=== PATIENT | female | born 1990 | race Caucasian/White ===

== ENCOUNTER 2024-12-24 00:02 | Observation (INO) | payer OTHER, SELFPAY ==
[2024-12-24 00:36] VITALS: BP 110/64; BMI 33.9
[2024-12-24 01:11] LABS: Hematocrit 32.5 % (37.0-47.0); Hemoglobin 11.6 g/dL (12.0-16.0); Mean Corp Hgb Conc. 35.7 g/dL (33.0-37.0); Mean Corpuscular Volume 88.6 fL (81.0-99.0); Nucleated Red Blood Cells % 0 %; Platelet Count 166 10^3/uL (130-400); Red Cell Dist. Width 12.7 % (11.5-14.5)
== END 2024-12-24 07:30 | disposition home or self-care (01) ==
LOC: LDRP 00:02
PROVIDERS: ADMITTING PHYSICIAN Obstetrics & Gynecology
DX: O47.1 False labor at or after 37 completed weeks of gestation (principal); Z3A.39 39 weeks gestation of pregnancy
CPT/HCPCS: 59025; 85025; 86850; 86900; 86901; G0378

== ENCOUNTER 2024-12-26 15:02 | Inpatient (IN) | payer OTHER, SELFPAY ==
[2024-12-26 15:39] VITALS: BP 118/77; BMI 34.2
[2024-12-26] MEDS: LR 1000 IV ×2 (16:00→21:27)
[2024-12-26 16:17] LABS: Hematocrit 34.6 % (37.0-47.0); Hemoglobin 12.0 g/dL (12.0-16.0); Mean Corp Hgb Conc. 34.7 g/dL (33.0-37.0); Mean Corpuscular Volume 89.6 fL (81.0-99.0); Nucleated Red Blood Cells % 0 %; Platelet Count 172 10^3/uL (130-400); Red Cell Dist. Width 12.6 % (11.5-14.5)
[2024-12-26] MEDS: PITOCIN 30 UNITS/NSS 500 ML IV (16:40)
[2024-12-26] MEDS: SUBLIMAZE 100 MCG EPIDURAL (22:02)
[2024-12-26] MEDS: FENTANYL/BUPIVACAINE 100 EPIDURAL (22:02)
[2024-12-27] MEDS: LR 1000 IV (01:28)
[2024-12-27] MEDS: PITOCIN 30 UNITS/NSS 500 ML IV (07:14)
--- NOTE | 2024-12-27 08:45 | W.NBN.DEL ---
Delivery Note
-
Date of Service: December 27, 2024
Requesting Physician: Dana Atkins MD
Reason for Request: Tight Nuchal Cord
Place of Delivery: Labor Room
Type of Delivery:
Maternal History
Maternal History: Other (Hyperphenylalaninemia)
Pre Care: Adequate
Mothers Age in Years: 34
/Para: -->2
Gestational Age at : 39 6/7
Blood Type: O Positive
Antibody Screen: Negative
Hep B S Ag: Negative
HIV: Nonreactive
RPR: Nonreactive
Rubella: Nonimmune
Group B Strep: Negative
Group B Strep Prophylaxis: Not Indicated
Chlamydia/GC: Negative
Hep C: Negative
MSAFP: Normal
NIPT: Normal
Rupture of Membranes (in hours): 21
Meconium: No
Maximum Temp during Labor (Fahrenheit): 98.5
Labor: Augmentation
Delivery Complications: None
Infant
Delivery Date & Time:
Delivery Date 12/27/24
Time 05:39
score @ 1 minute: 5
score @ 5 minutes: 9
Resuscitation: Routine NRP
Delivery/Resuscitation Course:
Neonatology called to delivery room secondary to tight nuchal cord. Baby already born and on the warmer bed. No signs of distress. Oxygen saturations on room air 90-94% at 5 minutes of life. Baby left with the parents for routine care.
Cord Clamping Delay: None
Cord Milking: No
Reason for No Delay Cord Clamping/Milking: Other (tight nuchal cord)
Transfer Location: Nursery
Gross Physical Exam: Other (undescended left testicle)
Follow Up
Topics Discussed with Parents: Status at and Feeding
Time Spent with Baby: </= 30 minutes
Status of Baby: Routine
[2024-12-27] MEDS: COLACE 100 MG PO ×2 (09:56→19:43)
[2024-12-27] MEDS: PRENATAL PLUS 1 TABLET PO (09:56)
[2024-12-27] MEDS: MOTRIN 600 MG PO (23:19)
[2024-12-28 05:53] LABS: Hematocrit 29.7 % (37.0-47.0); Hemoglobin 10.3 g/dL (12.0-16.0)
[2024-12-28] MEDS: MOTRIN 600 MG PO ×2 (08:26→19:54)
[2024-12-28] MEDS: COLACE 100 MG PO ×2 (08:27→19:54)
[2024-12-28] MEDS: PRENATAL PLUS 1 TABLET PO (08:27)
[2024-12-29] MEDS: PRENATAL PLUS 1 TABLET PO (08:25)
[2024-12-29] MEDS: COLACE 100 MG PO (08:25)
[2024-12-29] MEDS: M-M-R II 0.5 ML SC (08:50)
[2024-12-31 17:25] LABS: Syphilis/T. pallidum Ab Reflex Negative (Negative)
== END 2024-12-29 10:22 | disposition home or self-care (01) | DRG 807 ==
LOC: LDRP 15:02
PROVIDERS: Obstetrics & Gynecology; ADMITTING PHYSICIAN Obstetrics & Gynecology
PROC: 10907ZC Drainage of Amniotic Fluid, Therapeutic from Products of Conception, Via Natural or Artificial Opening (ICD-10-PCS; 2024-12-26)
PROC: 3E033VJ Introduction of Other Hormone into Peripheral Vein, Percutaneous Approach (ICD-10-PCS; 2024-12-26)
PROC: 10E0XZZ Delivery of Products of Conception, External Approach (ICD-10-PCS; 2024-12-27)
PROC: 3E0234Z Introduction of Serum, Toxoid and Vaccine into Muscle, Percutaneous Approach (ICD-10-PCS; 2024-12-29)
DX: O69.1XX0 Labor and delivery complicated by cord around neck, with compression, not applicable or unspecified (principal); Z37.0 Single live birth; O76 Abnormality in fetal heart rate and rhythm complicating labor and delivery; Z3A.39 39 weeks gestation of pregnancy; Z23 Encounter for immunization
CPT/HCPCS: 36415; 85014; 85018; 85025; 86780; 86850; 86900; 86901